=== PATIENT | female | born 1970 | race Caucasian/White ===

== ENCOUNTER 2016-12-17 15:37 | Emergency (ER) | payer BC ==
[~2016-12-17] VITALS: Ht 177.8 cm; Wt 70.3 kg
[2016-12-17 16:49] LABS: BASO % 0 % (0-3); EOS # 0.1 x10^3/uL (0.0-0.7); EOS % 1 % (0-3); LYMPH # 1.4 x10^3/uL (1.0-4.8); LYMPH % 21 % (24-48); MEAN CORPUSCULAR HEMOGLOBIN 33 pg (25-35); MEAN CORPUSCULAR HGB CONC 35 g/dL (31-37); MEAN CORPUSCULAR VOLUME 93 fL (79-100); MONO # 0.7 x10^3/uL (0.0-1.1); MONO % 10 % (0-9); NEUT # 4.5 x10^3uL (1.8-7.7); NEUT % 68 % (31-73); PLATELET COUNT 176 x10^3/uL (140-400); RED CELL DISTRIBUTION WIDTH 12.9 % (11.5-14.5); WHITE BLOOD COUNT 6.6 x10^3/uL (4.0-11.0)
[2016-12-17 16:57] LABS: ALBUMIN 3.4 g/dL (3.4-5.0); C REACTIVE PROTEIN 1.2 mg/L (0-3.3); CALCIUM 8.9 mg/dL (8.5-10.1); CREATININE 0.8 mg/dL (0.6-1.0); GFR 77.6; POTASSIUM 3.9 mmol/L (3.5-5.1); TOTAL BILIRUBIN 0.4 mg/dL (0.2-1.0); TOTAL PROTEIN 6.8 g/dL (6.4-8.2)
--- NOTE | 2016-12-17 17:07 | RAD ---
CT head and cervical spine without contrast 12/17/2016 Indication: Right-sided numbness Comparison: None available. Technique: Multiple axial noncontrast CT images of the head and cervical spine were obtained from the skull base through the vertex. Coronal and sagittal reformats of the cervical spine are provided. Findings: Head: The ventricles, sulci and basal cisterns are within normal limits. There is hypoattenuation in the left frontal lobe and left frontal operculum which may represent a subacute infarct. There is no acute intracranial hemorrhage. There is no mass, mass effect or midline shift. Posterior fossa is within normal limits. Sellar and suprasellar cistern appear normal. Orbits are normal in appearance. Paranasal sinuses are well aerated. Mastoid air cells are well aerated. Scalp and calvaria are normal. Cervical spine: Alignment of the cervical spine is normal. There is no fracture identified. Vertebral body heights are maintained. Disc spaces are maintained. No significant facet or throughout the. No neural foraminal or spinal canal stenosis. Prevertebral soft tissues are within normal limits. Thyroid gland is normal in appearance. No pulmonary infiltrates. Impression: Hypoattenuation in the left frontal white matter and operculum may represent a subacute infarct. No acute fracture or malalignment of cervical spine. Critical results were discussed with Dr. Patterson at 5:00 PM on 12/17/[address] Munoz. PQRS Compliance Statement: One or more of the following individualized dose reduction techniques were utilized for this examination: 1. Automated exposure control 2. Adjustment of the mA and/or kV according to patient size 3. Use of iterative reconstruction technique
--- NOTE | 2016-12-17 17:13 | PHYS DOC ---
General Chief Complaint: UPPER EXTREMITY PAIN Stated Complaint: LOSE OF FEELING RIGHT ARM Time Seen by MD: 16:34 Source: patient Exam Limitations: other (vague historian) Problems: History of Present Illness Initial Comments Patient is a 46-year-old female who comes to the ED complaining of right arm numbness and weakness. Patient states that "a few days ago" she thought she slept on her glasses as she had a left-sided headache located in her temporal region. She states that she assumed it would resolve quickly as she felt like she was bruised from sleeping on her glasses. Symptoms did resolve on their own, patient cannot correlate whether the headache relates temporally to her other symptoms. She says she also had blurred vision in her left eye several days ago which resolved on its own. She says for at least the past 48 hours she's had worsening numbness of right arm from approximately the deltoid insertion distally. She had weakness of the right arm for the past 2 days which has been worsening, she has weakness with arm abduction and elbow flexion and extension and wrist flexion but is unable to extend her hand at the wrist and states she has no control of her hand or fingers. She feels as if her right arm is swollen and says she's had a mass behind her elbow for several weeks which he thought might be compressing on the nerve. Patient denies neck pain or headache today, no chest pain or trouble breathing she does state that she feels like her memory has been somewhat compromised lately. No speech symptoms no facial asymmetry no lower extremity symptoms or other focal neurologic deficit. ED vitals: 98.3, 89, 16, 151/98, 99% room air Timing/Duration: getting worse, other (at least 48 hours) Severity: severe Modifying Factors: improves with other Associated Symptoms: headaches, weakness, other Allergies: Coded Allergies: Iodinated Contrast- Oral and IV Dye (Verified Allergy, Unknown, 12/17/16) Past Medical History Medical History: other (osteoarthritis, migraine headaches, chronic knee pain) Surgical History: noncontributory ( section) Social History Smoker: cigarettes Alcohol: none Drugs: none Review of Systems Constitutional: denies chills, denies diaphoresis, denies fever, malaise EENTM: see HPI, denies tearing, denies double vision, denies ear pain, denies ear discharge, denies nose pain, denies throat pain, denies mouth pain Respiratory: denies cough, denies shortness of breath, denies wheezing Cardiovascular: denies chest pain, edema (lower extremity swelling weeks ago), denies palpitations, denies syncope Gastrointestinal: denies abdominal pain, denies diarrhea, denies nausea, denies vomiting Genitourinary: denies dysuria, denies frequency, denies hematuria Musculoskeletal: see HPI, denies back pain, denies neck pain Psychiatric/Neurological: see HPI Hematologic/Lymphatic: denies blood clots, denies easy bleeding, denies easy bruising Physical Exam General Appearance: WD/WN, no apparent distress Eyes: bilateral eye normal inspection, bilateral eye PERRL, bilateral eye EOMI Ear, Nose, Throat: hearing grossly normal, normal ENT inspection, normal pharynx Neck: non-tender, supple Respiratory: chest non-tender, normal breath sounds, no respiratory distress Cardiovascular: normal peripheral pulses, regular rate, rhythm Gastrointestinal: non tender, soft Back: no CVA tenderness, no vertebral tenderness Extremities: non-tender, normal inspection (left upper extremity), other ( right upper extremity with mild nonpitting edema and probable reactive lymph node proximal to the right elbow no evidence of trauma range of motion is decreased in the right upper extremity) Neurologic/Psychiatric: stopping builder II-XII nml as tested, alert, normal mood/affect, oriented x 3, other (decreased sensation in the right upper extremity globally, mild decrease right upper extremity strength globally with motor deficit involving wrist dorsiflexors and all hand movements) Skin: normal color, warm/dry Orders, Labs, Meds I initially considered the possibility of CVA, cervical spine foraminal stenosis , right upper extremity DVT. Labs CT of the head and right upper extremity ultrasound order. Upon receiving phone call from the radiologist I discontinued the ultrasound order to try to expedite patient transferred to [facility]. PATIENT: CHRISTIAN WINSLOW ACCOUNT: [id number] : 1970 LOCATION: ER AGE: 46 SEX: F EXAM STATUS: REG ER ORD. PHYSICIAN: SOSA GANDHI DO REASON: RUE weakness PROCEDURE: CT HEAD AND CERVICAL SPINE WO CT head and cervical spine without contrast 12/17/2016 Indication: Right-sided numbness Comparison: None available. Technique: Multiple axial noncontrast CT images of the head and cervical spine were obtained from the skull base through the vertex. Coronal and sagittal reformats of the cervical spine are provided. Findings: Head: The ventricles, sulci and basal cisterns are within normal limits. There is hypoattenuation in the left frontal lobe and left frontal operculum which may represent a subacute infarct. There is no acute intracranial hemorrhage. There is no mass, mass effect or midline shift. Posterior fossa is within normal limits. Sellar and suprasellar cistern appear normal. Orbits are normal in appearance. Paranasal sinuses are well aerated. Mastoid air cells are well aerated. Scalp and calvaria are normal. Cervical spine: Alignment of the cervical spine is normal. There is no fracture identified. Vertebral body heights are maintained. Disc spaces are maintained. No significant facet or throughout the. No neural foraminal or spinal canal stenosis. Prevertebral soft tissues are within normal limits. Thyroid gland is normal in appearance. No pulmonary infiltrates. Impression: Hypoattenuation in the left frontal white matter and operculum may represent a subacute infarct. No acute fracture or malalignment of cervical spine. Critical results were discussed with Dr. Gandhi at 5:00 PM on 12/17/[address] Soto. PQRS Compliance Statement: One or more of the following individualized dose reduction techniques were utilized for this examination: 1. Automated exposure control 2. Adjustment of the mA and/or kV according to patient size 3. Use of iterative reconstruction technique DICTATED AND SIGNED BY: FER SOTO MD DATE: 12/17/16 8368 CC: JUAN DANIELSON; SOSA GANDHI DO ~ D-dimer elevated 0.59 otherwise ED labs reassuring. 1732: I discussed the pt initially with radiologist who called to discuss CT findings. He recommends MRI w/contrast, pt will need to be transferred to [facility]. At 1730 I discussed pt with conference interpreter hospitalist at [facility] Dr Villanueva who accepts pt for EMS transfer, MRI w/contrast, and neurology or neurosurgery consult. Pt resting comfortably, agreeable with transfer no new or worsening symptoms. 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 Villanueva is accepting. SOSA GANDHI DO Dec 17, 2016 17:13
[2016-12-17 17:30] VITALS: BP 146/99
[2016-12-17 18:00] LABS: SEDIMENTATION RATE 20 (0-25)
[2016-12-17] MEDS ORDERED: fentaNYL PF 100 MCG/2 ML VIAL IV ONE (19:15)
--- NOTE | 2016-12-17 19:40 | EKG ---
[address] [address] Test Date: 2016-12-17 Test Time: 16:06:28 Pat Name: CHRISTIAN WINSLOW Department: Room: Gender: F Delivery Consultant: LYNETTE : 1970 Requested By: SOSA GANDHI Order Number: [id number] Reading MD: Curt Medina Measurements Intervals [place] Rate: 79 P: 45 [place]: 166 QRS: 56 QRSD: 88 T: 39 QT: 380 QTc: 437 Interpretive Statements SINUS RHYTHM Electronically Signed On 12-18-2016 13:21:29 CDT by Curt Medina
== END 2016-12-17 19:15 | disposition short-term general hospital (02) ==
LOC: ER 15:37
DX: I63.9 Cerebral infarction, unspecified (principal); G83.21 Monoplegia of upper limb affecting right dominant side; G89.29 Other chronic pain; F17.210 Nicotine dependence, cigarettes, uncomplicated; M19.90 Unspecified osteoarthritis, unspecified site; G43.909 Migraine, unspecified, not intractable, without status migrainosus; Z91.041 Radiographic dye allergy status
CPT/HCPCS: 36415; 70450; 72125; 80053; 83605; 85025; 85379; 85610; 85651; 85730; 86140; 93005; 96374; 99285; J3010